=== PATIENT | female | born 1955 ===

== ENCOUNTER 2024-03-23 01:17 | Outpatient (CLI) | payer MEDICARE, OTHER, SELFPAY ==
--- NOTE | 2024-03-23 | DI.MRI_ITS ---
Exam(s) MR LOWER JOINT LT WO EXAM: MR LOWER JOINT LT WO CLINICAL HISTORY: SYNOVIAL POPLITEAL CYST, LT KNEE,M71.22,ASSES CYST ON US,ASSESS OA AND. TECHNIQUE: Multiplanar multisequence MRI was performed. COMPARISON: No exams were available for comparison FINDINGS: The examination is limited due to patient motion artifact. BONES: No fractures identified. JOINTS: In the femoral tibial joints, there is articular cartilage loss and osteophytes present. Sub chondral edema is seen. The findings are consistent with osteoarthritis. There is significant narro wing of the joint space particularly in the medial femoral tibial joint. There also is cartilage los s seen in the patellofemoral joint with joint space narrowing present. There is also mild synovial h ypertrophy present. There is a small joint effusion. TENDONS: Extensor mechanism: Unremarkable. Medial retinaculum: Unremarkable. Lateral retinaculum: Unremarkable. Popliteus: There is fatty atrophy of the popliteus muscle. There is a cystic lesion intimately assoc iated with the popliteus muscle measuring 2.2 AP by 2.5 transverse by 6 cm craniocaudad. There are r ounded areas seen internally which may represent loose bodies. There may be communication with the j oint space laterally. MUSCLES: Marked fatty atrophy is noted of the popliteus muscle. MENISCI: The medial meniscus is unremarkable. The lateral meniscus is unremarkable. SOFT TISSUES: Unremarkable. LIGAMENTS: Anterior Cruciate: Unremarkable. Posterior Cruciate: Unremarkable. Medial Collateral:Unremarkable. Lateral Collateral: Unremarkable. OTHER: IMPRESSION: 1. Moderately severe arthrosis of the left knee involving all 3 joint compartments. 2. 2.2 x 2.5 x 6 cm fluid collection posteriorly. It appears to communicate with the joint space lat erally. There are several rounded densities internally which may reflect loose bodies. 3. Marked fatty atrophy of the popliteus muscle. 4. No evidence of a meniscal or ligament tear. DATA REPOSITORY:
== END 2024-03-23 01:37 ==
PROVIDERS: PCP General Practice; Visit Provider General Practice
DX: M71.22 Synovial cyst of popliteal space [Baker], left knee (principal)
CPT/HCPCS: 73721